=== PATIENT | female | born 1945 ===

== ENCOUNTER 2018-03-10 20:02 | Emergency (ER) | payer OTHER ==
[~2018-03-10] VITALS: Ht 157.5 cm; Wt 69.9 kg
[~2018-03-10 20:02] MED LIST: CELEBREX200MG PO
[2018-03-11] MEDS ORDERED: CIPRO500 MG PO (02:29)
[2018-03-11] MEDS ORDERED: LEVSIN/SL0.125 MG SL (02:29)
[2018-03-11] MEDS ORDERED: PEPCID40 MG PO (02:29)
== END 2018-03-11 02:49 | disposition home or self-care (01) ==
LOC: ER 20:02
DX: K52.89 Other specified noninfective gastroenteritis and colitis (principal); R10.13 Epigastric pain

== ENCOUNTER 2019-01-21 18:47 | Emergency (ER) | payer OTHER ==
[~2019-01-21] VITALS: Ht 170.2 cm; Wt 74.8 kg
[~2019-01-21 18:47] MED LIST changes: +CIPRO500 MG PO; +LEVSIN/SL0.125 MG SL; +PEPCID40 MG PO
== END 2019-01-21 21:49 | disposition home or self-care (01) ==
LOC: ER 18:47
DX: M51.26 Other intervertebral disc displacement, lumbar region (principal)

== ENCOUNTER 2019-07-15 11:37 | Emergency (ER) | payer OTHER ==
[~2019-07-15] VITALS: Ht 157.5 cm; Wt 68.9 kg
== END 2019-07-15 15:08 | disposition home or self-care (01) ==
LOC: ER 11:37
DX: R07.89 Other chest pain (principal); R51 Headache; Z03.818 Encounter for observation for suspected exposure to other biological agents ruled out

== ENCOUNTER → 2022-11-06 | Emergency (ER) | payer OTHER ==
[~2022-11-06] VITALS: Ht 157.5 cm; Wt 68.5 kg
[~2022-11-06] MED LIST changes: +MEDROLPACK PO
== END | disposition left against medical advice (07) ==
LOC: ER 18:27
DX: Z53.21 Procedure and treatment not carried out due to patient leaving prior to being seen by health care provider (principal)